=== PATIENT | male | born 1995 | race Two or more races ===

== ENCOUNTER 2024-01-28 18:11 | Emergency (ER) | payer MEDICAID, OTHER ==
[~2024-01-28] VITALS: Ht 170.2 cm; Wt 69.7 kg
[2024-01-28 18:22] VITALS: BP 158/93; PULSE 84; RESP 20; TEMP 98.2; O2SAT 97
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
[2024-01-28] MEDS ORDERED: IBUP-1456 PO (19:36)
--- NOTE | 2024-01-28 20:00 | DVH ---
EXAMINATION: 3 views of the right shoulder CLINICAL HISTORY: right shoulder pain COMPARISON: None Findings and impression: Mild elevation of the distal clavicle in relation to the acromion. This may reflect AC joint injury. Follow-up MRI may be obtained to further evaluate. No other grossly displaced fractures or dislocations are evident on the provided views. Glenohumeral articulation appears intact. Visualized right lung is grossly clear.
== END 2024-01-28 20:40 | disposition home or self-care (01) ==
LOC: ER 18:11
DX: S43.101A Unspecified dislocation of right acromioclavicular joint, initial encounter (principal); V86.96XA Unspecified occupant of dirt bike or motor/cross bike injured in nontraffic accident, initial encounter; Y93.89 Activity, other specified; Y92.89 Other specified places as the place of occurrence of the external cause; Y99.8 Other external cause status
CPT/HCPCS: 29105; 73030